=== PATIENT | female | born 1990 | race Caucasian/White ===

== ENCOUNTER → 2022-02-04 | Outpatient (CLI) | payer BC ==
--- NOTE | 2022-02-04 09:18 | MR ---
EXAMINATION TYPE: MR lumbar spine wo con DATE OF EXAM: 02/04/2022 8:40 AM COMPARISON: NONE HISTORY: M54.16 Radiculopathy, constant pain in Lower back more right sided into buttocks Multiplanar, MultiSpin echo imaging of the lumbar spine was performed. L1-L2: Normal disc appearance without desiccation. No herniation, protrusion or disc bulging. No ca nal stenosis is present. Foramina are patent bilaterally. L2-L3: Normal disc appearance without desiccation. No herniation, protrusion or disc bulging. No ca nal stenosis is present. Foramina are patent bilaterally. L3-L4: Normal disc appearance without desiccation. No herniation, protrusion or disc bulging. No ca nal stenosis is present. Foramina are patent bilaterally. L4-L5: Normal disc appearance without desiccation. No herniation, protrusion or disc bulging. No ca nal stenosis is present. Foramina are patent bilaterally. L5-S1: Mild disc desiccation. Right paracentral disc protrusion and mild right lateral recess stenosi s. Stenosis or foraminal. Lumbar segments are intact. No paraspinal masses are identified. Conus medullaris has a normal appe arance. IMPRESSION: 1. Mild degenerative disc disease with right paracentral disc protrusion at L5-S1.
== END | disposition home or self-care (01) ==
LOC: RADMRIMAIN 07:51
PROVIDERS: ATTEND Nurse Practitioner Family
DX: M51.17 Intervertebral disc disorders with radiculopathy, lumbosacral region (principal)
CPT/HCPCS: 72148

== ENCOUNTER → 2022-03-03 | Outpatient (CLI) | payer BC, OTHER ==
[2022-03-03 14:29] VITALS: BP 123/79; PULSE 98; RESP 18; TEMP 98.2
--- NOTE | 2022-03-03 14:31 | P.CON ---
Consult Note - . Consult date: 03/03/22 Assessment/Plan:: HISTORY OF PRESENT ILLNESS: 32 yr old female as a referral from Dr Zamudio NPC presents today with lower back pain secondary to DDD and L5-S1 disc protrusion for evaluation. Patient states her lower back pain is 7/10 in intensity when sitting, localized in the center of her lumbar spine, radiates left and right of midline as well as radiation of pain to the lower extremity,right side greater than left. Pain is provoked with lifting and sitting. Pain is relieved with medication (Tylenol and Motrin OTC), topicals, physical therapy which made it worse, chiropractic treatments for 7 months which ended on 11/19 which made the pain worse, home stretching regimen, standing, massage every 3-4 months and rest. PMH: Obesity PSH: C section in 2018 SH: Negative x 3. and lives with and kids. FH: Mother- Thyroid disorder, CAD. Father- CAD All: NKDA Meds: See list REVIEW OF ORGAN SYSTEMS: CONSTITUTIONAL: No fevers or chills. No recent weight loss. HEENT: No visual acuity loss, eye pain, difficulties with hearing. No nosebleeds. No difficulty swallowing. RESPIRATORY: Denies any troubles with breathing or dyspnea on exertion. CARDIOVASCULAR: Denies any chest pain, palpitations, or recent heart attacks. GASTROINTESTINAL: Denies fatty food intolerance. Has change in bowel habits and gas bloat. GENITOURINARY: Denies any blood in urine. Has increased urinary frequency. NEUROLOGICAL: + numbness and tingling along the distal extremities. No seizure disorders or headaches. MUSCULOSKELETAL: + back pain SKIN: No skin cancer. No rash. PSYCHIATRIC: Denies current depression or suicidal thoughts. ENDOCRINE: Denies current thyroid disorders. Denies any blood sugar glucose intolerance. HEME/LYMPHATIC: Denies any lumps and bumps around the neck. History of deep venous thrombosis. ALLERGY/IMMUNOLOGY: No immunoglobulin therapy. No immune deficiencies. BREAST: Denies current breast lumps, pain or nipple discharge. Physical Examinations : Constitutional : Cooperative , not in acute distress . HEENT: Neck supple. No Lymphadenopathy. Normal thyroid size . Eyes no ptosis , no icterus, no photophobia . Hearing intact. Normal oropharynx. No Thrush. Respiratory : Chest clear to auscultations bilaterally. No wheezing. No rhonchi. Cardiovascular : Regular rate and rhythm , S1 / S2. No S3 . No S4. Gastrointestinal : Abdomen soft. No tenderness. Bowel sounds x 4. No organomegaly . Genitourinary : Deferred. Neurologic : Cranial nerve II to XII intact. No focal neurological deficits. Psychiatric : alert & oriented x 3. Matching mood & appropriate affect. Judgment & insight intact. Lymphatic No Lymphadenopathy. Musculoskeletal : Cervical Spine Motor strength in the deltoid and biceps: Normal right side. Normal Left side Motor strength biceps and the wrist extensors: Normal right side . Normal left side Motor strength in the triceps muscle: Normal right side. Normal left side Deep tendon reflexes: Normal at the biceps. Normal at Brachioradialis. Normal at triceps Cervical facet loading test: positive bilaterally Spurling test: positive bilaterally Neck distraction test: positive bilaterally Emil sign: positive bilaterally Lumbar spine Motor strength lower extremities ,thigh and legs 5/5 Right side , 5/5 Left side Lumbar paraspinal muscle spasms noted BL Deep tendon reflexes : Normal Knee Jerk. Normal Ankle Jerk Vertebral body tenderness over L3, L4, L5 Lumbar facet Loading Test: positive Right / positive Left Range of motion of the lumbar spine Flexion 30 degrees, extension 10 degrees Straight Leg Raise test: Left/ Right positive at degree Gene test: positive right / positive left. Severe tenderness over the Sacroiliac joint on the Right / Left sides Gaenslen test: positive bilaterally Seated flexion test: positive bilaterally. Imaging: MRI of the Lumbar spine from 02/04/22 reviewed Assessment/ Plan : Recommendation of LESI L4-L5 with TPIs of BL L1-L5. May be a series of injections, up to 3 within a six-month period, for optimal pain relief. Risks, benefits of procedure discussed and patient verbalized understanding. Denies aspirin or anti- coagulant use. Denies medical history of diabetes. All questions answered. I have spent greater than 50 minutes on patient care today. Dr Patel was available by phone for the evaluation of this patient. The time was used to review the medical records including relevant urine studies and Prescription history (MAPs), review of the available imaging, evaluation and examination of the patient, coordination of care with the medical staff and if applicable referring physicians, as well as creation of the medical record PQRS Measure Charge Sheet Mode of Arrival: Ambulatory - Pain Location Lower Back Non-Pharmacological Interventions: Chiropractic Treatment, Massage, Standing Pharmacological Interventions: PRN Medication, Topical Medication PQRS Narrative: Blood Pressure 123/79 Pain Intensity [Lower Back] 7 Scale Used Numeric (1 - 10) Hx Alcohol Use (MH) Yes Home Medications: Ambulatory Orders Acetaminophen Tab [Tylenol Tab] 500 mg PO 1300 02/27/22 Escitalopram [Lexapro] 10 mg PO HS 02/27/22 Ibuprofen [Motrin] 600 mg PO BID 02/27/22
== END ==
LOC: PNWHC3 13:32
PROVIDERS: ATTEND Specialist
DX: M51.36 Other intervertebral disc degeneration, lumbar region (principal); M51.27 Other intervertebral disc displacement, lumbosacral region
CPT/HCPCS: 99211

== ENCOUNTER 2022-04-10 12:34 | Day surgery (SDC) | payer BC, OTHER ==
[2022-04-09 11:26] VITALS: BMI 33.2
[~2022-04-10 12:34] MED LIST: LACTATED RINGERS 1,000 ML IV SCH; LIDOCAINE 1% (10MG/ML) FOR IV START INTRADERMA PRN
[2022-04-10 13:06] VITALS: RESP 18; TEMP 97.8
[2022-04-10 13:17] LABS: Glucose,Whole Blood 85 mg/dL (75-99)
[2022-04-10] MEDS ORDERED: fentaNYL (PF) 50 MCG/ML 2 ML AMP ONE (13:39)
[2022-04-10] MEDS ORDERED: ROPIVACAINE 5MG/ML 20ML VIAL ONE (13:39)
[2022-04-10] MEDS ORDERED: IOPAMIDOL M200 10 ML VIAL ONE (13:39)
[2022-04-10] MEDS ORDERED: MIDAZOLAM 2 MG/2 ML VIAL ONE (13:39)
[2022-04-10] MEDS ORDERED: methylPREDNISolone ACETATE 40 MG/ML 1 ML VIAL ONE (13:39)
[2022-04-10] MEDS ORDERED: IV FLUID CONTINUATION 1,000 ML IV ONE (13:59)
--- NOTE | 2022-04-10 13:59 | P.PCN ---
Date of Procedure: 04/10/22 Procedure(s) Performed: PREOPERATIVE DIAGNOSIS: 1- Lumbar Degenerative Disc Diseases 2-myofascial pain syndrome lumbar paraspinal muscles POSTOPERATIVE DIAGNOSIS: Same as preop diagnosis. PROCEDURE 1. Lumbar epidural steroid injection under fluoroscopic guidance at the L4-5 l evel. (Fluoroscopy imaging was available in radiology department) 2. Lumbar epidurogram. 3. Trigger point injections lumbar paraspinal muscles 4 on the right side lumbar paraspinal muscles and 4 on the left side lumbar paraspinal muscles. ANESTHESIA: Local with 1% lidocaine 3 ml and , moderate sedation with intravenous Versed 2 mg ,and fentanyle 100 Mcg EBL: Minimal PROCEDURE INDICATION: The patient with low back pain and radiculitis symptoms unresponsive to conservative treatment. Fluoroscopy was used to optimize visualization of the needle placement and to maximize safety. PROCEDURE DESCRIPTION / TECHNIQUE: The patient was seen and identified in the preoperative area. Risks, benefits, complications including but not limited to infections ,bleeding ,allergic reaction to the medications ,nerve damage and not complete pain releife , and alternatives were discussed with the patient. The patient agreed to proceed with the procedure and signed the consent. IV was started, and vital signs were stable. Patient was taken to the OR and time out was completed. The patient was placed in the prone position on procedure table and a pillow was placed under the abdomen to reduce lumbar lordosis. The lumbosacral area was prepped and draped in the usual sterile fashion.ere closely monitored during the procedure. Conscious sedation was used during the procedure to decrease patients anxiety. Vital signs was monitered during the entire procedure. Using anterior-posterior fluoroscopy, the L4-5 interlaminar space was identified and the skin over this site was marked and then infiltrated with 1% lidocaine subcutaneously. Subsequently, a 20-gauge Tuohy epidural needle was inserted and advanced toward the epidural space using the ``Loss of resistance technique and guided by AP and lateral fluoroscopy. The correct needle position in the epidural space was verified with the injection of 2 mL of the water soluble contrast dye Isovue 200 contrast and observing an excellent epidurogram with the epidural spread of the dye, after negative aspiration for blood and CSF and in the absence of paresthesias. Again after negative aspiration, a 6 ml mixture containing 80 mg of Depo-medrol , and 2 ml of preservative free Normal Saline, and 2 ml of preservative free lidocaine 1% solution was injected and a washout of epidurogram was seen. Needle was withdrawn intact. After that the trigger point injection done under sterile technique, each of the trigger point injected with ropivacaine 0.5% using 25-gauge needle, ejection then after negative aspiration and there was no paresthesia during the injection, each trigger point injected with ropivacaine 0.5% 2 ml , total of 4 trigger point injected in the right side lumbar paraspinal muscles and 4 trigger point injected on the left side lumbar paraspinal muscles COMPLICATIONS: None DISPOSITION / PLANS: The patient was placed in a supine position and transferred to the recovery area in a stable condition for observation. There was no evidence of lower extremity motor or sensory deficit after the procedure. Patient was discharged from the recovery room after meeting discharge criteria. Home discharge instructions were given to the patient by the staff. The patient was reexamined prior to discharge. The patient will schedule a follow up in the clinic in 2-4 weeks.
[2022-04-10 14:24] VITALS: BP 120/68; PULSE 72
--- NOTE | 2022-04-10 15:16 | FL ---
EXAMINATION TYPE: FL guided pain mgmt statistic DATE OF EXAM: 04/10/2022 CLINICAL HISTORY: Low back pain. TECHNIQUE: Fluoroscopy. COMPARISON: None. FINDINGS: Fluoroscopic guidance was provided during pain relief procedure performed by Dr. Patel . A total of 1 seconds of fluoroscopic time was utilized during the procedure and 1 spot images are acquired. Single image acquired shows needle localization at L4-L5 level. IMPRESSION: As Above.
== END 2022-04-10 14:34 | disposition home or self-care (01) ==
LOC: ORPAIN 12:34
PROVIDERS: ATTEND Specialist
DX: M51.36 Other intervertebral disc degeneration, lumbar region (principal)
CPT/HCPCS: 20553; 62323; 81025; J2250; J1030; J3010; Q9966; J2795; 99152

== ENCOUNTER → 2022-05-05 | Outpatient (CLI) | payer BC, OTHER ==
[2022-05-05 10:26] VITALS: BP 115/71; PULSE 75; RESP 18; TEMP 98.6
--- NOTE | 2022-05-05 10:49 | P.PN ---
Subjective Progress Note Date: 05/05/22 Principal diagnosis: A 32 yr old female with a history of severe and chronic low back pain secondary to lumbar degenerative disc diseases and lumbar spondylosis with facet arthropathy presents today for evaluation s/p LESI L4-L5 #1 with TPIs of BL lumbar paraspinal muscles. She states she experienced 100% pain relief x 2-1/2 weeks s/p procedure. Pain level is currently at 2/10 in intensity, dull & achy LBP with shooting pain R> L, sharp/ shooting in character. Pain is provoked by bending, lifting and twisting. Pain is alleviated with medications, topicals, injections, heat, physical therapy in March 2022, chiropractic treatments in 2020, daily home stretching regimen, massage therapy on as-needed basis, repositioning and rest. Interventional pain procedures completed include LESI L4-L5 #1 Patient is currently on Motrin OTC and CBD topical Patient denies any side effects of the medication(s), denies excessive drowsiness or sleepiness, denies suicidal ideation and reports that the current pain medication is helping to control the pain and improve activities of daily living. Patient denies any motor or sensory deficits. Patient denies any fever or night sweats, denies any change in the bowel movements or urination. Physical Examination: -Constitutional: Cooperative. Not in acute distress . -HEENT: Neck is supple. No lymphadenopathy. No thyromegaly. Normal thyroid size. Eyes: No ptosis , no icterus, no photophobia. ENT: No auditory deficits. Normal oropharynx. No Thrush. - Respiratory: Chest clear to auscultations bilaterally. No wheezing. No rhonchi. - Cardiovascular: Regular rate and rhythm. S1 / S2 , no S3 , no S4. - Gastrointestinal: Abdomen soft no tenderness. Bowel sounds positive in all four quadrants. No organomegaly. - Genitourinary: Deferred. - Neurologic: Cranial nerve II to XII intact. No focal neurological deficits. - Psychatric: Alert & oriented x 3. Matching mood & appropriate affect. Judgment and insight intact. - Lymphatic: No Lymphadenopathy. - Musculoskeletal: Cervical spine: Muscle bulk/ tone/ strength in the bilateral upper extremities normal Vertebral body tenderness to palpation over Facet loading test positive Thoracic spine Muscle bulk / tone/ strength in the bilateral paraspinal muscles normal Vertebral body tender to palpation over Facet loading test positive Lumbar spine: Motor bulk/ tone/ strength lower extremities , thigh and legs : 5/5 Deep tendon reflexes : Normal Knee Jerk. Normal Ankle Jerk . Vertebral body tenderness to palpation over L4 Lumbar Facet Loading Test positive Straight Leg Raise: positive at 30 degrees right side/ left side Gaenslen's Test positive Sacral spine : Severe tenderness over the Sacroiliac joint: right side / left side Range of motion: Flexion of the lumbar spine <60 degrees Range of motion: Extension of the lumbar spine <20 degrees Gaenslen's Test positive Magdiel's Test positive Gene test: positive right side / left side Thigh Thrust Test Sacral Thrust Test Assessment and plan: Chronic low back pain secondary to lumbar degenerative disc disease , lumbar spondylosis with facet arthropathy without myelopathy Recommendation of LANEY L4-L5 #2. May need a series of injections, up to 3 within a six-month period, for optimal pain relief. Risks, benefits of procedure discussed and pt verbalized understanding. Denies anticoagulant use or medical history of diabetes. All patient questions answered MAPS reviewed and it was appropriate. I have spent 31 minutes on patient care today. Dr Patel was available by phone for the evaluation of this patient. The time was used to review the medical records including relevant urine studies and Prescription history (MAPs), review of the available imaging, evaluation and examination of the patient, coordination of care with the medical staff and if applicable referring physicians, as well as creation of the medical record Objective - Vital Signs Vital signs: Vital Signs Temp 98.6 F 05/05/22 10:20 Pulse 75 05/05/22 10:20 Resp 18 05/05/22 10:20 BP 115/71 05/05/22 10:20 Pulse Ox 98 05/05/22 10:20 FiO2 Intake & Output 05/04/22 05/05/22 05/05/22 18:59 06:59 18:59 Weight 96.162 kg PQRS Measure Charge Sheet Mode of Arrival: Ambulatory - Pain Location Lower Back Non-Pharmacological Interventions: Chiropractic Treatment, Heat, Home Exercise, Massage, Physical Therapy, Position/Reposition, Stretching Pharmacological Interventions: Epidural, PRN Medication, Topical Medication PQRS Narrative: Blood Pressure 115/71 Pain Intensity [Lower Back] 2 Scale Used Numeric (1 - 10) Hx Alcohol Use (MH) Yes Home Medications: Ambulatory Orders Acetaminophen Tab [Tylenol Tab] 500 mg PO 1300 02/27/22 Escitalopram [Lexapro] 10 mg PO HS 02/27/22 Ibuprofen [Motrin] 600 mg PO BID 02/27/22
== END ==
LOC: PNWHC3 09:47
PROVIDERS: ATTEND Specialist
DX: M51.36 Other intervertebral disc degeneration, lumbar region (principal); M47.816 Spondylosis without myelopathy or radiculopathy, lumbar region; G89.29 Other chronic pain
CPT/HCPCS: 99211

== ENCOUNTER 2022-06-03 13:00 | Day surgery (SDC) | payer BC, OTHER ==
[2022-05-29 08:32] VITALS: BMI 33.2
[~2022-06-03 13:00] MED LIST changes: -LIDOCAINE 1% (10MG/ML) FOR IV START INTRADERMA PRN
[2022-06-03 13:18] VITALS: TEMP 97.7
[2022-06-03 13:26] LABS: Glucose,Whole Blood 87 mg/dL (70-110)
[2022-06-03] MEDS ORDERED: ROPIVACAINE 5MG/ML 20ML VIAL ONE (13:42)
[2022-06-03] MEDS ORDERED: TRIAMCINOLONE ACETONIDE 40 MG/ML 1 ML VIAL ONE (13:42)
[2022-06-03] MEDS ORDERED: MIDAZOLAM 2 MG/2 ML VIAL ONE (13:42)
[2022-06-03] MEDS ORDERED: IOPAMIDOL M200 10 ML VIAL ONE (13:42)
[2022-06-03] MEDS ORDERED: fentaNYL (PF) 50 MCG/ML 2 ML AMP ONE (13:42)
--- NOTE | 2022-06-03 13:54 | P.PCN ---
Date of Procedure: 06/03/22 Surgeon: Sirena Dos Santos Pathology: none sent Condition: stable Disposition: PACU Description of Procedure: PREOPERATIVE DIAGNOSIS: 1-Lumbar radiculopathy 2- Lumber Degenerative Disc Diseases. POSTOPERATIVE DIAGNOSIS: 1-Lumbar radiculopathy. 2-Lumbar Degenerative Disc Diseases PROCEDURE 1. Lumbar epidural steroid injection under fluoroscopic guidance at the L4-5 level on the right paramedian approach. 2. Lumbar epidurogram. ANESTHESIA: Local with 1% lidocaine; and IV moderate conscious sedation with Versed and fentanyl EBL: Minimal PROCEDURE INDICATION: The patient with low back pain and radiculitis symptoms unresponsive to conservative treatment. Fluoroscopy was used to optimize visualization of the needle placement and to maximize safety. PROCEDURE DESCRIPTION / TECHNIQUE: The patient was seen and identified in the preoperative area. Risks, benefits, complications including but not limited to infections ,bleeding ,allergic reaction to the medications ,nerve damage and not complete pain relief , and alternatives were discussed with the patient. The patient agreed to proceed with the procedure and signed the consent. IV was started, and vital signs were stable. Patient was taken to the OR and time out was completed. The patient was placed in the prone position on procedure table and a pillow was placed under the abdomen to reduce lumbar lordosis. The lumbosacral area was prepped and draped in the usual sterile fashion with ChloraPrep.Patient was closely monitored during the procedure. Conscious sedation was used during the procedure to decrease patients anxiety. Vital signs were monitered during the entire procedure. Using anterior-posterior fluoroscopy, the L4-5 interlaminar space was identified and the skin over this site was marked and then infiltrated with 1% lidocaine subcutaneously. Subsequently, a 20-gauge Tuohy epidural needle was inserted and advanced toward the epidural space using the Loss of resistance to air technique and guided by AP and lateral fluoroscopy. The correct needle position in the epidural space was verified with the injection of 1 mL of the water soluble contrast dye Omnipaque 180 contrast and observing an excellent epidurogram with the epidural spread of the dye, after negative aspiration for blood and CSF and in the absence of paresthesias. Again after negative aspiration, a 7 ml mixture containing 40 mg of Kenalog and 5 ml of preservative free Normal Saline, and 2 ml of preservative free Ropivacaine 0.5% solution was injected and a washout of epidurogram was seen. Needle was withdrawn intact, skin was cleansed, and bandages were applied. patient tolerated procedure well and was transferred to PACU in stable condition.A copy of the needle placement picture was saved to the fluoroscopy machine. COMPLICATIONS: None DISPOSITION / PLANS: The patient was placed in a supine position and transferred to the recovery area in a stable condition for observation. There was no evidence of lower extremity motor or sensory deficit after the procedure. Patient was discharged from the recovery room after meeting discharge criteria. Home discharge instructions were given to the patient by the staff. The patient was reexamined prior to discharge. The patient will schedule a follow up in the clinic in 2-4 weeks.
[2022-06-03] MEDS ORDERED: IV FLUID CONTINUATION 800 ML IV ONE (14:00)
[2022-06-03 14:05] VITALS: RESP 16
[2022-06-03 14:22] VITALS: BP 120/76; PULSE 70
--- NOTE | 2022-06-03 16:40 | FL ---
EXAMINATION TYPE: FL guided pain mgmt statistic DATE OF EXAM: 06/03/2022 FLUOROSCOPY Fluoroscopy time of 6 seconds was used during lumbar epidural injection. 2 image/s document/s the pr faustina.
== END 2022-06-03 14:36 | disposition home or self-care (01) ==
LOC: ORPAIN 13:00
PROVIDERS: ATTEND Anesthesiology
DX: M51.16 Intervertebral disc disorders with radiculopathy, lumbar region (principal)
CPT/HCPCS: 81025; 62323; J2250; J3301; J3010; Q9966; J2795

== ENCOUNTER → 2022-06-23 | Outpatient (CLI) | payer BC, OTHER ==
[2022-06-23 11:29] VITALS: BP 114/75; PULSE 107; RESP 18; TEMP 98.6
--- NOTE | 2022-06-23 12:44 | P.PAINPG ---
PQRS Measure Charge Sheet Comment: A 32 yr old female with a history of severe and chronic low back pain secondary to lumbar degenerative disc diseases and lumbar spondylosis with facet arthropathy presents today for evaluation status post LESI L4-L5 times one. Patient states she experienced 85% pain relief x 2 wks and currently s/p proc edure. Pain level is currently at 6/10 in intensity, constant, pinching, sore, sharp in the tailbone region, with shooting towards . Pain is provoked by sitting. Pain is alleviated with PT in March, April 2022, home based exercise regimen, massage every 3 mo, chiropractic treatments didn't help, topicals, heat, laying supine and rest. Interventional pain procedures completed include LESI L4-L5 x 1 Patient is currently on Lidocaine topicals & patches Patient denies any side effects of the medication(s), denies excessive drowsiness or sleepiness, denies suicidal ideation and reports that the current pain medication is helping to control the pain and improve activities of daily living. Patient denies any motor or sensory deficits. Patient denies any fever or night sweats, denies any change in the bowel movements or urination. Physical Examination: -Constitutional: Cooperative. Not in acute distress . - Neurologic: Cranial nerve II to XII intact. No focal neurological deficits. - Psychatric: Alert & oriented x 3. Matching mood & appropriate affect. Judgment and insight intact. - Musculoskeletal: Cervical spine: Muscle bulk/ tone/ strength in the bilateral upper extremities normal Vertebral body tenderness to palpation over Spurling test positive Distraction test positive Facet loading test positive Thoracic spine Muscle bulk / tone/ strength in the bilateral paraspinal muscles normal Vertebral body tender to palpation over Facet loading test positive Lumbar spine: Motor bulk/ tone/ strength lower extremities , thigh and legs : 5/5 Deep tendon reflexes : Normal Knee Jerk. Normal Ankle Jerk . Vertebral body tenderness to palpation over L5, S1 Lumbar Facet Loading Test positive Straight Leg Raise: positive at 30 degrees right side/ left side Gaenslen's Test positive Sacral spine : Severe tenderness over the Sacroiliac joint: right side / left side Range of motion: Flexion of the lumbar spine <60 degrees Range of motion: Extension of the lumbar spine <20 degrees Gaenslen's Test positive Magdiel's Test positive Gene test: positive right side / left side Thigh Thrust Test Sacral Thrust Test Assessment and plan: Chronic low back pain secondary to lumbar degenerative disc disease , lumbar spondylosis with facet arthropathy without myelopathy Recommendation of LESI L5-S1. May need a series of injections, up to 3 within a six-month timeframe, for optimal pain relief. Risks, benefits of procedure discussed and pt verbalized understanding. Denies anticoagulant use or medical history of diabetes. All patient questions answered MAPS reviewed and it was appropriate. I have spent less than 30 minutes on patient care today. Dr Patel was available by phone for the evaluation of this patient. The time was used to review the medical records including relevant urine studies and Prescription history (MAPs), review of the available imaging, evaluation and examination of the patient, coordination of care with the medical staff and if applicable referring physicians, as well as creation of the medical record PQRS Narrative: Hx Alcohol Use (MH) Yes Home Medications: Ambulatory Orders Acetaminophen Tab [Tylenol Tab] 500 mg PO 1300 PRN 02/27/22 Escitalopram [Lexapro] 10 mg PO HS 02/27/22 Ibuprofen [Motrin] 600 mg PO BID PRN 02/27/22 Controlled Substance Measures - Controlled Substance Measures Is patient prescribed a controlled substance at discharge?: No
== END ==
LOC: PNWHC3 09:28
PROVIDERS: ATTEND Specialist
DX: G89.29 Other chronic pain (principal); M51.36 Other intervertebral disc degeneration, lumbar region; M47.816 Spondylosis without myelopathy or radiculopathy, lumbar region
CPT/HCPCS: 99211

== ENCOUNTER 2022-07-29 06:52 | Day surgery (SDC) | payer BC, OTHER ==
[2022-07-29] MEDS ORDERED: LACTATED RINGERS 1,000 ML IV ONE (07:16)
[2022-07-29 07:32] VITALS: TEMP 96.6
[2022-07-29] MEDS ORDERED: methylPREDNISolone ACETATE 80 MG/ML 1 ML VIAL ONE (07:39)
[2022-07-29] MEDS ORDERED: IOPAMIDOL M200 10 ML VIAL ONE (07:39)
[2022-07-29] MEDS ORDERED: MIDAZOLAM 2 MG/2 ML VIAL ONE (07:39)
[2022-07-29] MEDS ORDERED: fentaNYL (PF) 50 MCG/ML 2 ML AMP ONE (07:39)
--- NOTE | 2022-07-29 07:55 | P.PCN ---
Date of Procedure: 07/29/22 Procedure(s) Performed: PREOPERATIVE DIAGNOSIS: 1- Lumbar Degenerative Disc Diseases 2-Lumbar spondylosis with Facet arthropathy without myelopathy POSTOPERATIVE DIAGNOSIS: Same as preop diagnosis. PROCEDURE 1. Lumbar epidural steroid injection under fluoroscopic guidance at the L5-S1 level. (Fluoroscopy imaging was available in radiology department) 2. Lumbar epidurogram. ANESTHESIA: moderate sedation with intravenous Versed 2 mg ,and fentanyle 100 Mcg Sedation start time : 07:42 Sedation end time : 07:49 EBL: Minimal PROCEDURE INDICATION: The patient with low back pain and radiculitis symptoms unresponsive to conservative treatment. Fluoroscopy was used to optimize visualization of the needle placement and to maximize safety. PROCEDURE DESCRIPTION / TECHNIQUE: The patient was seen and identified in the preoperative area. Risks, benefits, complications including but not limited to infections ,bleeding ,allergic reaction to the medications ,nerve damage and not complete pain releife , and alternatives were discussed with the patient. The patient agreed to proceed with the procedure and signed the consent. IV was started, and vital signs were stable. Patient was taken to the OR and time out was completed. The patient was placed in the prone position on procedure table and a pillow was placed under the abdomen to reduce lumbar lordosis. The lumbosacral area was prepped and draped in the usual sterile fashion.ere closely monitored during the procedure. Conscious sedation was used during the procedure to decrease patients anxiety. Vital signs was monitered during the entire procedure. Using anterior-posterior fluoroscopy, the L5-S1 interlaminar space was identified and the skin over this site was marked and then infiltrated with 1% lidocaine subcutaneously. Subsequently, a 20-gauge Tuohy epidural needle was inserted and advanced toward the epidural space using the ``Loss of resistance technique and guided by AP and lateral fluoroscopy. The correct needle position in the epidural space was verified with the injection of 2 mL of the water soluble contrast dye Isovue 200 contrast and observing an excellent epidurogram with the epidural spread of the dye, after negative aspiration for blood and CSF and in the absence of paresthesias. Again after negative aspiration, a 6 ml mixture containing 80 mg of Depo-medrol , and 2 ml of preservative free Normal Saline, and 2 ml of preservative free lidocaine 1% solution was injected and a washout of epidurogram was seen. Needle was withdrawn intact, skin was cleansed, and bandages were applied. COMPLICATIONS: None DISPOSITION / PLANS: The patient was placed in a supine position and transferred to the recovery area in a stable condition for observation. There was no evidence of lower extremity motor or sensory deficit after the procedure. Patient was discharged from the recovery room after meeting discharge criteria. Home discharge instructions were given to the patient by the staff. The patient was reexamined prior to discharge. The patient will schedule a follow up in the clinic in 2-4 weeks.
[2022-07-29] MEDS ORDERED: IV FLUID CONTINUATION 700 ML IV ONE (07:57)
--- NOTE | 2022-07-29 08:00 | FL ---
Intraoperative/procedural fluoroscopic services were provided for lumbar epidural injection. Total fl uoroscopy time is 5 seconds with a total of 1 submitted image to PACS. Please see the operative note for further details.
[2022-07-29 08:02] VITALS: RESP 18
[2022-07-29 08:17] VITALS: PULSE 70
[2022-07-29 08:18] VITALS: BP 113/78
[2022-07-29] MEDS ORDERED: LIDOCAINE 1% (10MG/ML) FOR IV START INTRADERMA PRN (08:26)
[2022-07-29] MEDS ORDERED: LACTATED RINGERS 1,000 ML IV SCH (08:26)
== END 2022-07-29 08:28 | disposition home or self-care (01) ==
LOC: ORPAIN 06:52
PROVIDERS: ATTEND Specialist
DX: M51.16 Intervertebral disc disorders with radiculopathy, lumbar region (principal); M47.26 Other spondylosis with radiculopathy, lumbar region; F41.9 Anxiety disorder, unspecified
CPT/HCPCS: 81025; 62323; J2250; J1040; J3010; Q9966

== ENCOUNTER → 2022-08-18 | Outpatient (CLI) | payer BC, OTHER ==
[2022-08-18 12:28] VITALS: BP 119/75; PULSE 77; RESP 18; TEMP 98.9
--- NOTE | 2022-08-18 14:51 | P.PAINPG ---
PQRS Measure Charge Sheet Comment: A 32 yr old female with a history of severe and chronic low back pain secondary to lumbar degenerative disc diseases and lumbar spondylosis with facet arthropathy without myelopathy presents today for evaluation s/p ROCHELLE L5-S1. Pt states she experienced 95% pain relief x 2 wks s/p procedure. Pain level is c urrently at 5 /10 in intensity, constant, center of lumbar spine, poking in character w shooting towards tailbone. Pain is provoked by sitting/ bending. Pain is alleviated with PT completed April 2022, home exercise regimen, massage therapy monthly, heat, (Tylenol, Ibuprofen), laying supine, walking, repositioning and rest. Interventional pain procedures completed include ROCHELLE L5-S1, L4-5. Patient is currently on Tylenol, Ibuprofen. Patient denies any side effects of the medication(s), denies excessive drowsiness or sleepiness, denies suicidal ideation and reports that the current pain medication is helping to control the pain and improve activities of daily living. Patient denies any motor or sensory deficits. Patient denies any fever or night sweats, denies any change in the bowel movements or urination. Physical Examination: -Constitutional: Cooperative. Not in acute distress . - Neurologic: Cranial nerve II to XII intact. No focal neurological deficits. - Psychatric: Alert & oriented x 3. Matching mood & appropriate affect. Judgment and insight intact. - Musculoskeletal: Cervical spine: Muscle bulk/ tone/ strength in the bilateral upper extremities normal Vertebral body tenderness to palpation over Spurling test positive Distraction test positive Facet loading test positive Thoracic spine Muscle bulk / tone/ strength in the bilateral paraspinal muscles normal Vertebral body tender to palpation over Facet loading test positive Lumbar spine: Motor bulk/ tone/ strength lower extremities , thigh and legs : 5/5 Deep tendon reflexes : Normal Knee Jerk. Normal Ankle Jerk . Vertebral body tenderness to palpation over L5 Lumbar Facet Loading Test positive Straight Leg Raise: positive at 30 degrees right side/ left side Gaenslen's Test positive Sacral spine : Severe tenderness over the Sacroiliac joint: right side / left side Range of motion: Flexion of the lumbar spine <60 degrees Range of motion: Extension of the lumbar spine <20 degrees Gaenslen's Test positive Magdiel's Test positive Gene test: positive right side / left side Thigh Thrust Test Sacral Thrust Test Assessment and plan: Chronic low back pain secondary to lumbar degenerative disc disease , lumbar spondylosis with facet arthropathy without myelopathy Pt states she has substantial pain relief at this time. She will perform PT at home and will follow up in our clinic as needed. All patient questions answered MAPS reviewed and it was appropriate. I have spent less than 30 minutes on patient care today. Dr Patel was available by phone for the evaluation of this patient. The time was used to review the medical records including relevant urine studies and Prescription history (MAPs), review of the available imaging, evaluation and examination of the patient, coordination of care with the medical staff and if applicable referring physicians, as well as creation of the medical record PQRS Narrative: Hx Alcohol Use (MH) Yes Home Medications: Ambulatory Orders Acetaminophen Tab [Tylenol Tab] 500 mg PO 1300 PRN 02/27/22 Escitalopram [Lexapro] 10 mg PO HS 02/27/22 Ibuprofen [Motrin] 600 mg PO BID PRN 02/27/22 Unk Vitamin 1 tab PO HS 07/28/22 Controlled Substance Measures - Controlled Substance Measures Is patient prescribed a controlled substance at discharge?: No
== END ==
LOC: PNWHC3 09:17
PROVIDERS: ATTEND Specialist
DX: M51.36 Other intervertebral disc degeneration, lumbar region (principal); M47.816 Spondylosis without myelopathy or radiculopathy, lumbar region; G89.29 Other chronic pain
CPT/HCPCS: 99211

== ENCOUNTER 2022-11-02 12:37 | Emergency (ER) | payer BC, OTHER ==
[2022-11-02] MEDS ORDERED: MORPHINE SULFATE 4 MG/ML SYRINGE IM STA (16:19)
[2022-11-02] MEDS ORDERED: KETOROLAC 15 MG/ML 1 ML VIAL IM STA (16:19)
--- NOTE | 2022-11-02 16:25 | ED ---
Back Pain HPI - General Chief Complaint: Back Pain/Injury Stated Complaint: back pain Time Seen by Provider: 11/02/22 16:03 Source: patient, family, RN notes reviewed, old records reviewed Limitations: no limitations - History of Present Illness Initial Comments: This is a nontoxic-appearing 32-year-old female that presents to the emergency room with her significant other complaining of low back pain. Patient states that she has had increasing pain over the past week. Does have a history of chronic back pain with bulging disks in lumbar spine. She has seen pain management and had physical therapy. [facility] She states she was getting epidural trigger point injections last one was she believes in April. Patient denies any bowel or bladder incontinence. No fevers, no trauma. Able to ambulate. MD Complaint: back pain -: week(s) (1) Similar Symptoms Previously: Yes Radiation: groin, left leg, right leg Severity scale (1-10): 9 Quality: other (Shooting) Consistency: constant Improves With: immobilization Worsens With: movement, other (Pending) Associated Symptoms: denies other symptoms Treatments Prior to Arrival: NSAIDS, acetaminophen, other (Topical) - Related Data Home Medications Medication Instructions Recorded Confirmed Acetaminophen Tab [Tylenol Tab] 500 mg PO 1300 PRN 02/27/22 07/29/22 Escitalopram [Lexapro] 10 mg PO HS 02/27/22 07/29/22 Ibuprofen [Motrin] 600 mg PO BID PRN 02/27/22 07/29/22 Unk Vitamin 1 tab PO HS 07/28/22 07/29/22 Previous Rx's Medication Instructions Recorded Lidocaine 5% Patch [Lidoderm] 1 patch TOPICAL DAILY 14 Days #14 11/02/22 patch Allergies Allergy/AdvReac Type Severity Reaction Status Date / Time No Known Allergies Allergy Verified 11/02/22 12:42 Review of Systems ROS Statement: Those systems with pertinent positive or pertinent negative responses have been documented in the HPI. ROS Other: All systems not noted in ROS Statement are negative. Past Medical History Past Medical History: Hypertension Additional Past Medical History / Comment(s): high blood pressure during a , constipation, lower back pain/disk, 02/2022 hx steroid dose pack History of Any Multi-Drug Resistant Organisms: None Reported Past Surgical History: Section Additional Past Surgical History / Comment(s): oral surgery, Pain procedure Past Anesthesia/Blood Transfusion Reactions: No Reported Reaction Past Psychological History: Anxiety Smoking Status: Never smoker Past Alcohol Use History: Occasional Past Drug Use History: None Reported - Past Family History Mother Family Medical History: Cancer General Exam Limitations: no limitations General appearance: alert, in no apparent distress Head exam: Present: atraumatic Eye exam: Absent: scleral icterus, conjunctival injection, periorbital swelling Respiratory exam: Absent: respiratory distress, accessory muscle use Cardiovascular Exam: Present: regular rate GI/Abdominal exam: Present: soft. Absent: distended, tenderness, rigid Left Upper Leg exam: Present: full ROM. Absent: tenderness Knee exam: Present: full ROM. Absent: tenderness Lower Leg exam: Present: full ROM. Absent: tenderness Ankle exam: Present: full ROM. Absent: tenderness Foot/Toe exam: Present: full ROM. Absent: tenderness Neurovascular tendon exam: Present: no vascular compromise. Absent: abnormal cap refill, motor deficit, sensory deficit, extremity cold to touch, pallor, foot drop Gait: observed and limited by pain Right Upper Leg exam: Present: full ROM. Absent: tenderness Knee exam: Present: full ROM. Absent: tenderness Lower Leg exam: Present: full ROM. Absent: tenderness Ankle exam: Present: full ROM. Absent: tenderness Foot/Toe exam: Present: full ROM. Absent: tenderness Neurovascular tendon exam: Present: no vascular compromise. Absent: pulse deficit, abnormal cap refill, motor deficit, sensory deficit, extremity cold to touch, pallor, foot drop Back exam: Present: normal inspection, tenderness (Lumbar spine), vertebral tenderness (Lumbar). Absent: CVA tenderness (R), CVA tenderness (L), muscle spasm, paraspinal tenderness, rash noted Expanded Back exam: Absent: saddle anesthesia Back exam: Negative Straight Leg Raising: Left, Right Neurological exam: Present: alert, oriented X3 Psychiatric exam: Present: normal affect, normal mood Skin exam: Present: warm, dry, normal color. Absent: cyanosis, diaphoretic, petechiae, pallor Course Vital Signs 11/02/22 12:39 Temperature 97.9 F Pulse Rate 100 Respiratory 22 Rate Blood Pressure 129/74 O2 Sat by Pulse 98 Oximetry Medical Decision Making - Medical Decision Making Patient presents with lumbar back pain worsening over the past week. Has a history of lumbar radiculopathy, lumbar spondylosis arthropathy and bulging lumbar disks. She has been seen by Dr. Patel in the past and had epidural trigger point injections. Last injections were in April. She also has been participating in physical therapy at home. She denies any fevers or bowel or bladder incontinence. She has good sensation in bilateral lower extremities able to lift them off the bed without any weakness. Sensation intact, no evidence of foot drop. She was given Toradol and morphine for pain. She was also given a Lidoderm patch. She was offered steroids but states that she feels bloated and does not get relief with them. Patient denies any muscle spasms. We did discuss muscle relaxers and she declined, states she has no muscle spasms. I did offer her Tylenol 3 and she declined that as well stating she is uncomfortable with taking narcotics. She was discharged with follow-up with her pain management doctor and orthopedics tomorrow. Strict return parameters were discussed. She is agreeable to this plan of care. Case discussed with Dr. Lee Disposition Clinical Impression: Chronic low back pain Disposition: HOME SELF-CARE Condition: Good Instructions (If sedation given, give patient instructions): Chronic Back Pain (DC), Lower Back Exercises (ED) Additional Instructions: Continue Tylenol and Motrin alternating every 4 hours along with topical pain relief medications. Follow-up with your pain management and orthopedic doctors tomorrow. Return to the emergency room with any new or concerning symptoms including inability to bear weight, bowel bladder incontinence or fevers. Prescriptions: Lidocaine 5% Patch [Lidoderm] 1 patch TOPICAL DAILY 14 Days #14 patch Is patient prescribed a controlled substance at d/c from ED?: No Referrals: Alma Allen MD [Primary Care Provider] - 1-2 days Time of Disposition: 16:33
[2022-11-02] MEDS ORDERED: LIDOCAINE 5% PATCH TOPICAL SCH (16:30)
[2022-11-02 16:50] VITALS: BP 131/89; PULSE 78; RESP 18; TEMP 98.6
== END 2022-11-02 16:53 | disposition home or self-care (01) ==
LOC: EC 12:37
DX: G89.29 Other chronic pain (principal); M54.50 Low back pain, unspecified; I10 Essential (primary) hypertension; F41.9 Anxiety disorder, unspecified; Z79.899 Other long term (current) drug therapy
CPT/HCPCS: 99283; 96372 ×2; J2270; J1885

== ENCOUNTER → 2022-11-26 | Outpatient (CLI) | payer BC, OTHER | END | disposition home or self-care (01) | LOC: LABWHC1 09:10 | PROVIDERS: ATTEND Internal Medicine Cardiovascular Disease | DX: R07.89 Other chest pain (principal) | CPT/HCPCS: 36415; 85379 ==

== ENCOUNTER → 2023-03-04 | Outpatient (CLI) | payer BC, OTHER ==
--- NOTE | 2023-03-04 15:34 | FL ---
EXAMINATION TYPE: FL hysterosalpingography DATE OF EXAM: 03/04/2023 CLINICAL HISTORY: Infertility. History of polycystic ovarian syndrome. TECHNIQUE: Fluoroscopy-assisted hysterosalpingogram. COMPARISON: None. FINDINGS: Fluoroscopic guidance was provided during hysterosalpingogram procedure performed by yuki velazquez A total of 48 seconds of fluoroscopic time was utilized during the procedure and 16 spot images w as acquired. The procedure was explained to patient. Benefits, alternatives, and risks were discussed. Preprocedure religious studies professor image shows no suspicious abnormality. Using sterile technique, a speculum was int roduced into the vaginal canal. The cervical os is cleansed with Betadine. The catheter is inserted i nto the cervical canal and balloon is inflated. Approximately 5 to 6 cc of contrast was instilled int o the endometrial canal under fluoroscopic guidance. The endometrial canal appears within normal limi ts. Lucency from balloon is noted. There is first filling of the right fallopian tube and free spilla ge of contrast. There is then subsequent filling of the left fallopian tube and free spillage of cont rast. At this point procedure was terminated. Balloon is deflated and catheter is withdrawn. Speculum was removed. Patient tolerated procedure well without any immediate complication. Patient was capped in the radio logy Department for short stay after the procedure and then discharged home in stable and satisfactor y condition. IMPRESSION: Successful fluoroscopic-assisted hysterosalpingogram with patency of bilateral tubes docu mented.
== END | disposition home or self-care (01) ==
LOC: RADUSWWP 13:21
PROVIDERS: ATTEND Obstetrics & Gynecology Obstetrics
DX: N97.9 Female infertility, unspecified (principal)
CPT/HCPCS: 58340; 74740; Q9967